=== PATIENT | female | born 1980 | race Caucasian/White ===

== ENCOUNTER → 2021-02-20 | Outpatient (CLI) | payer BC ==
[2021-02-20 09:23] LABS: BASO # 0.1 10^3/uL (0.0-0.2); BASO % 0.6 % (0.0-1.0); EOS # 0.2 10^3/uL (0.0-0.5); EOS % 1.9 % (0.0-3.0); HEMATOCRIT 42.3 % (36.0-47.0); HEMOGLOBIN 14.4 g/dl (12.0-15.5); LYMPH # 2.8 10^3/uL (1.5-5.0); LYMPH % 32.7 % (24.0-44.0); MEAN CORPUSCULAR HEMOGLOBIN 31.1 pg (27.0-33.0); MEAN CORPUSCULAR VOLUME 91.4 fl (80.0-96.0); MONO # 0.7 10^3/uL (0.0-0.8); MONO % 7.9 % (2.0-8.0); NEUTROPHILS # 4.9 10^3/uL (1.5-8.5); NEUTROPHILS % 56.6 % (36.0-66.0); PLATELET COUNT, AUTOMATED 266 10^3/uL (150-450); RED BLOOD COUNT 4.63 10^6/uL (4.00-5.40); WHITE BLOOD COUNT 8.6 10^3/uL (4.0-10.0)
[2021-02-20 09:42] LABS: INR 1.01; PROTHROMBIN TIME 13.7 SECONDS (12.7-14.5)
[2021-02-20 09:43] LABS: ALBUMIN 4.1 GM/DL (3.2-5.2); ALT/SGPT 21 U/L (12-78); BILIRUBIN,TOTAL 0.4 MG/DL (0.2-1.0); BLOOD UREA NITROGEN 11 MG/DL (7-18); CALCIUM LEVEL 9.2 MG/DL (8.5-10.1); CARBON DIOXIDE LEVEL 26 MEQ/L (21-32); CHLORIDE LEVEL 107 MEQ/L (98-107); CHOLESTEROL LEVEL 207 MG/DL (<200); CHOLESTEROL RISK RATIO 3.338 (<5); CREATININE FOR GFR 0.92 MG/DL (0.55-1.30); FREE T4 1.13 NG/DL (0.76-1.46); GLOMERULAR FILTRATION RATE > 60.0 (>58); GLUCOSE, FASTING 97 MG/DL (70-100); HDL CHOLESTEROL 62 MG/DL (>40); LDL CHOLESTEROL 128 MG/DL (<100); NON-HDL-C 145 MG/DL; PARTIAL THROMBOPLASTIN TIME 38.5 SECONDS (25.9-37.0); POTASSIUM SERUM 4.4 MEQ/L (3.5-5.1); RHEUMATOID FACTOR QUANT < 10.0 IU/ML (<15.0); SODIUM LEVEL 139 MEQ/L (136-145); THYROID STIMULATING HORMONE 0.705 uIU/ML (0.358-3.740); TOTAL PROTEIN 7.3 GM/DL (6.4-8.2); TRIGLYCERIDES LEVEL 83 MG/DL (<150)
[2021-02-20 09:53] LABS: ERYTHROCYTE SEDIMENTATION RATE 2 mm/hr (0-20)
[2021-02-22 16:08] LABS: ANA (HEP2) Negative (.)
== END ==
LOC: M LAB 08:27
PROVIDERS: ATTEND Physician Assistant
DX: M19.049 Primary osteoarthritis, unspecified hand (principal); R63.5 Abnormal weight gain; R23.3 Spontaneous ecchymoses; Z13.1 Encounter for screening for diabetes mellitus

== ENCOUNTER → 2021-04-29 | Outpatient (REF) | payer BC | LOC: M SFHCADAM 12:37 | PROVIDERS: ATTEND Physician Assistant | DX: Z12.4 Encounter for screening for malignant neoplasm of cervix (principal) | CPT/HCPCS: 87624; G0123 ==

== ENCOUNTER → 2021-10-24 | Outpatient (CLI) | payer BC ==
[2021-10-24 10:02] LABS: IRON (FE) 82 UG/DL (50-170); MAGNESIUM LEVEL 2.1 MG/DL (1.8-2.4); PHOSPHORUS LEVEL 3.2 MG/DL (2.5-4.9); TOTAL PROTEIN 7.3 GM/DL (6.4-8.2)
[2021-10-24 11:25] LABS: HEMOGLOBIN A1c 4.7 %
[2021-10-25 11:15] LABS: TOTAL 25(OH) VITAMIN D 23.4 NG/ML (30.0-100.0)
[2021-10-25 11:26] LABS: HEPATITIS B SURFACE ANTIGEN NEGATIVE (NEGATIVE)
[2021-10-25 11:50] LABS: HEPATITIS C VIRUS ABY INDEX 0.1 INDEX (<0.8)
[2021-10-25 12:06] LABS: HEPATITIS B SURFACE ANTIBODY POSITIVE (POSITIVE)
[2021-10-25 12:07] LABS: VITAMIN B12 LEVEL 412 PG/ML (247-911)
[2021-10-25 13:59] LABS: COMPLEMENT C3 83 MG/DL (90-180); COMPLEMENT C4 28 MG/DL (10-40); IMMUNOGLOBULIN G 1090 MG/DL (681-1648)
[2021-10-26 14:08] LABS: ALBUMIN % 61.7 % (55.8-66.1); ALPHA-1-GLOBULIN % 4.2 % (2.9-4.9); ALPHA-1-GLOBULINS 0.31 GM/DL (0.17-0.41); ALPHA-2-GLOBULINS 0.65 GM/DL (0.42-0.99); ALPHA-2-GLOBULINS % 8.9 % (7.1-11.8); BETA-1-GLOBULINS 0.42 GM/DL (0.28-0.60); BETA-1-GLOBULINS % 5.8 % (4.7-7.2); BETA-2-GLOBULINS % 4.1 % (3.2-6.5); GAMMA GLOBULIN % 15.3 % (11.1-18.8)
[2021-10-26 14:09] LABS: GAMMA GLOBULINS 1.12 GM/DL (0.65-1.58)
== END ==
LOC: M RAD 08:09
PROVIDERS: ATTEND Internal Medicine
DX: M19.049 Primary osteoarthritis, unspecified hand (principal); R53.83 Other fatigue; M79.10 Myalgia, unspecified site; R21 Rash and other nonspecific skin eruption; Z86.19 Personal history of other infectious and parasitic diseases

== ENCOUNTER → 2021-11-16 | Outpatient (CLI) | payer BC | LOC: M ADAMS 10:39 | PROVIDERS: ATTEND Internal Medicine | DX: M19.049 Primary osteoarthritis, unspecified hand (principal) ==

== ENCOUNTER → 2021-12-08 | Outpatient (CLI) | payer BC | LOC: M SLEEP HO 08:13 | PROVIDERS: ATTEND Internal Medicine | DX: R53.83 Other fatigue (principal) ==

== ENCOUNTER → 2022-02-13 | Outpatient (CLI) | payer BC | LOC: M RAD 08:38 | PROVIDERS: ATTEND Physician Assistant | DX: R06.00 Dyspnea, unspecified (principal) ==

== ENCOUNTER 2022-04-15 12:27 | Day surgery (SDC) | payer BC ==
[2022-04-15] MEDS ORDERED: NS 1,000 ML IV ONE ×2 (12:40→15:35)
[2022-04-15 13:12] LABS: BASO # 0.1 10^3/uL (0.0-0.2); BASO % 0.6 % (0.0-1.0); EOS # 0.1 10^3/uL (0.0-0.5); EOS % 0.6 % (0.0-3.0); HEMATOCRIT 39.9 % (36.0-47.0); HEMOGLOBIN 13.6 g/dl (12.0-15.5); LYMPH # 3.1 10^3/uL (1.5-5.0); MEAN CORPUSCULAR HEMOGLOBIN 31.2 pg (27.0-33.0); MEAN CORPUSCULAR HGB CONC 34.1 g/dl (32.0-36.5); MEAN CORPUSCULAR VOLUME 91.5 fl (80.0-96.0); MONO # 0.7 10^3/uL (0.0-0.8); MONO % 7.9 % (2.0-8.0); NEUTROPHILS # 4.9 10^3/uL (1.5-8.5); NEUTROPHILS % 55.6 % (36.0-66.0); PLATELET COUNT, AUTOMATED 262 10^3/uL (150-450); RED BLOOD COUNT 4.36 10^6/uL (4.00-5.40); WHITE BLOOD COUNT 8.8 10^3/uL (4.0-10.0)
[2022-04-15 13:49] LABS: HCG, SERUM QUANTITATIVE 6012.2 MIU/ML (<4.2)
[2022-04-15] MEDS: MORPHINE 2 MG/ML 1ML VIAL IV PRN ×2 (14:05→15:23)
[2022-04-15 14:58] LABS: RSV AMPLIFICATION NEGATIVE (NEGATIVE)
[2022-04-15] MEDS ORDERED: RHOGAM 300MCG (1500IU) INJ IM ONE (15:05)
[2022-04-15] MEDS ORDERED: MORPHINE 2 MG/ML 1ML VIAL IV PRN (15:35)
[2022-04-15] MEDS ORDERED: PREN1CHW PO (16:04)
[2022-04-15] MEDS ORDERED: HOME MED LIST COMPLETE! XX SCH (16:05)
[2022-04-15 16:26] LABS: THYROID STIMULATING HORMONE 1.111 uIU/ML (0.55-4.78)
[2022-04-15] MEDS ORDERED: KETOROLAC 30 MG/ML 1ML VIAL IV ONE (16:30)
[2022-04-15] MEDS ORDERED: SUGAMMADEX SODIUM 500 MG/5 ML VIAL (BRIDION) As Ordered ONE (16:38)
[2022-04-15] MEDS ORDERED: ONDANSETRON 4MG 2ML VIAL As Ordered ONE (16:38)
[2022-04-15] MEDS ORDERED: SUCCINYLCHOLINE 100MG/5ML SYRINGE As Ordered ONE (16:38)
[2022-04-15] MEDS ORDERED: propofoL 200 MG/20 ML VIAL As Ordered ONE (16:38)
[2022-04-15] MEDS ORDERED: ROCURONIUM BROMIDE 50MG/5ML VIAL As Ordered ONE (16:39)
[2022-04-15] MEDS ORDERED: fentaNYL 100 MCG/2 ML INJECTION As Ordered ONE (16:40)
[2022-04-15] MEDS ORDERED: MIDAZOLAM INJ 2MG/2ML VIAL As Ordered ONE (16:40)
[2022-04-15] MEDS ORDERED: BUPIVACAINE HCL 0.25% 30ML VIAL As Ordered ONE (16:42)
[2022-04-15] MEDS ORDERED: LIDOCAINE 2% 100MG/5ML SDV (FOR ANES.) As Ordered ONE (16:57)
[2022-04-15] MEDS ORDERED: LR 1,000 ML IV SCH (18:35)
[2022-04-15] MEDS ORDERED: oxyCODONE 5MG TAB PO PRN (18:35)
[2022-04-15] MEDS ORDERED: HYDROMORPHONE HCL 0.5 MG/ 0.5 ML SYRINGE IV PRN (18:35)
[2022-04-15] MEDS ORDERED: fentaNYL 100 MCG/2 ML INJECTION IV PRN (18:35)
[2022-04-15] MEDS ORDERED: ONDANSETRON 4MG 2ML VIAL IV PRN (18:35)
[2022-04-15] MEDS ORDERED: MEPERIDINE INJ 25 MG/ML VIAL As Ordered ONE (18:47)
[2022-04-15] MEDS: MEPERIDINE INJ 25 MG/ML VIAL IV PRN ×2 (18:50→19:00)
[2022-04-15] MEDS ORDERED: PERCOCET 5MG/325MG TAB PO PRN (19:00)
[2022-04-15 19:23] LABS: BLOOD UREA NITROGEN 7 MG/DL (9-23); CALCIUM LEVEL 9.1 MG/DL (8.5-10.1); CARBON DIOXIDE LEVEL 25 MMOL/L (20-31); CHLORIDE LEVEL 105 MMOL/L (98-107); CREATININE FOR GFR 0.94 MG/DL (0.55-1.30); GLOMERULAR FILTRATION RATE > 60.0 (>58); GLUCOSE, FASTING 96 MG/DL (60-100); SODIUM LEVEL 138 MMOL/L (136-145)
[2022-04-15 21:06] VITALS: BP 112/63
[2022-04-15] MEDS ORDERED: KETOROLAC 30 MG/ML 1ML VIAL IV SCH (23:00)
== END 2022-04-15 21:06 | disposition home or self-care (01) ==
LOC: M ED 12:27 → M SDC 12:28 → M ED 16:45 → M SDC 21:06
PROVIDERS: ATTEND Obstetrics & Gynecology
DX: O00.102 Left tubal pregnancy without intrauterine pregnancy (principal); Z88.8 Allergy status to other drugs, medicaments and biological substances
CPT/HCPCS: 59151; 76801; 76817; 80048; 84443; 84702; 85025; 86850; 86900; 86901; 87210; 87631; 88305; 93005; 93041; 94760; 96372; 96374; 96375; 96376; 99285; J0330; J1100; J2175; J2405

== ENCOUNTER → 2022-10-07 | Outpatient (CLI) | payer BC ==
[~2022-10-07] MED LIST: PREN1CHW PO
== END ==
LOC: M LAB 17:43
PROVIDERS: ATTEND Internal Medicine
DX: E55.9 Vitamin D deficiency, unspecified (principal)

== ENCOUNTER → 2023-06-18 | Outpatient (CLI) | payer BC ==
[2023-06-18 10:25] LABS: IMMUNOGLOBULIN A 191.2 MG/DL (40-350); IMMUNOGLOBULIN G 1050 MG/DL (650-1600)
[2023-06-28 03:13] LABS: ANTI TETANUS ANTIBODY 0.72 IU/mL (<0.10); IgG SERUM (part of Subclasses) 1161 mg/dL (586-1602); IgG Subclass 1 314 mg/dL (248-810); IgG Subclass 2 592 mg/dL (130-555); IgG Subclass 3 52 mg/dL (15-102); IgG Subclass 4 25 mg/dL (2-96); RUBELLA IgG FOR TORCH EVAL 1.45 index (Immune >0.99); STREP PNEUMO TYPE 12F 0.3 ug/mL (>1.3); STREP PNEUMO TYPE 14 0.3 ug/mL (>1.3); STREP PNEUMO TYPE 18C <0.1 ug/mL (>1.3); STREP PNEUMO TYPE 19A 1.6 ug/mL (>1.3); STREP PNEUMO TYPE 19F 1.2 ug/mL (>1.3); STREP PNEUMO TYPE 23F 0.2 ug/mL (>1.3); STREP PNEUMO TYPE 3 0.4 ug/mL (>1.3); STREP PNEUMO TYPE 4 0.1 ug/mL (>1.3); STREP PNEUMO TYPE 6B 0.2 ug/mL (>1.3); STREP PNEUMO TYPE 7F 0.4 ug/mL (>1.3); STREP PNEUMO TYPE 8 0.4 ug/mL (>1.3); STREP PNEUMO TYPE 9N 1.1 ug/mL (>1.3); STREP PNEUMO TYPE 9V 1.2 ug/mL (>1.3)
== END ==
LOC: M LAB 08:10
PROVIDERS: ATTEND Allergy & Immunology Allergy
DX: D84.9 Immunodeficiency, unspecified (principal)

== ENCOUNTER → 2023-06-18 | Outpatient (CLI) | payer BC ==
[2023-06-18 10:03] LABS: BASO % 0.5 % (0.0-1.0); EOS # 0.1 10^3/uL (0.0-0.5); EOS % 1.6 % (0.0-3.0); HEMATOCRIT 42.2 % (36.0-47.0); HEMOGLOBIN 14.2 g/dl (12.0-15.5); LYMPH # 2.8 10^3/uL (1.5-5.0); LYMPH % 36.5 % (24.0-44.0); MEAN CORPUSCULAR HEMOGLOBIN 30.7 pg (27.0-33.0); MEAN CORPUSCULAR HGB CONC 33.6 g/dl (32.0-36.5); MEAN CORPUSCULAR VOLUME 91.1 fl (80.0-96.0); MONO # 0.7 10^3/uL (0.0-0.8); MONO % 9.1 % (2.0-8.0); PLATELET COUNT, AUTOMATED 185 10^3/uL (150-450); RED BLOOD COUNT 4.63 10^6/uL (4.00-5.40); WHITE BLOOD COUNT 7.6 10^3/uL (4.0-10.0)
[2023-06-18 10:30] LABS: ALBUMIN 3.7 G/DL (3.2-5.2); ALKALINE PHOSPHATASE 46 U/L (46-116); ALT/SGPT 12 U/L (7.0-40); AST/SGOT 19 U/L (<34); BILIRUBIN,TOTAL 0.5 MG/DL (0.3-1.2); BLOOD UREA NITROGEN 15 MG/DL (9-23); CALCIUM LEVEL 8.2 MG/DL (8.5-10.1); CARBON DIOXIDE LEVEL 24 MMOL/L (20-31); CHLORIDE LEVEL 104 MMOL/L (98-107); CHOLESTEROL LEVEL 163 MG/DL (<200); CHOLESTEROL RISK RATIO 3.03 (<5); CREATININE FOR GFR 0.86 MG/DL (0.55-1.30); GLOMERULAR FILTRATION RATE > 60.0 (>58); GLUCOSE, FASTING 90 MG/DL (60-100); HDL CHOLESTEROL 53.7 MG/DL (>40); LDL CHOLESTEROL 95.3 MG/DL (<100); NON-HDL-C 109.3 MG/DL; POTASSIUM SERUM 3.9 MMOL/L (3.5-5.1); SODIUM LEVEL 135 MMOL/L (136-145); TOTAL PROTEIN 6.6 G/DL (5.7-8.2); TRIGLYCERIDES LEVEL 70 MG/DL (<150)
[2023-06-18 10:31] LABS: FREE T4 1.11 NG/DL (0.89-1.76)
[2023-06-18 10:33] LABS: THYROID STIMULATING HORMONE 1.051 uIU/ML (0.55-4.78)
== END ==
LOC: M LAB 08:09
PROVIDERS: ATTEND Physician Assistant
DX: N92.0 Excessive and frequent menstruation with regular cycle (principal); N94.6 Dysmenorrhea, unspecified; Z83.49 Family history of other endocrine, nutritional and metabolic diseases; R63.5 Abnormal weight gain

== ENCOUNTER → 2023-07-04 | Outpatient (CLI) | payer BC | LOC: M WHC 07:55 | PROVIDERS: ATTEND Obstetrics & Gynecology | DX: R92.2 Inconclusive mammogram (principal); R92.343 Mammographic extreme density, bilateral breasts ==

== ENCOUNTER → 2023-07-04 | Outpatient (REF) | payer BC | LOC: M PLALAB 10:01 | PROVIDERS: ATTEND Obstetrics & Gynecology | DX: Z01.419 Encounter for gynecological examination (general) (routine) without abnormal findings (principal) | CPT/HCPCS: 87624; G0123 ==

== ENCOUNTER → 2023-07-10 | Outpatient (CLI) | payer BC ==
[2023-07-10 18:45] LABS: FOLLICLE STIMULATING HORMONE 3.8 mIU/ML; LUTEINIZING HORMONE 13.8 mIU/ML
[2023-07-10 18:46] LABS: ESTRADIOL 184.9 PG/ML; PROLACTIN 14.97 NG/ML
[2023-07-10 18:50] LABS: PROGESTERONE 15.11 NG/ML
== END ==
LOC: M PLALAB 16:08
PROVIDERS: ATTEND Obstetrics & Gynecology
DX: N92.6 Irregular menstruation, unspecified (principal)

== ENCOUNTER → 2023-07-18 | Outpatient (CLI) | payer BC | LOC: M WHC 12:25 | PROVIDERS: ATTEND Obstetrics & Gynecology | DX: R92.8 Other abnormal and inconclusive findings on diagnostic imaging of breast (principal); N60.11 Diffuse cystic mastopathy of right breast; N60.12 Diffuse cystic mastopathy of left breast ==

== ENCOUNTER → 2023-07-18 | Outpatient (CLI) | payer BC | LOC: M WHC 12:22 | PROVIDERS: ATTEND Obstetrics & Gynecology | DX: N92.6 Irregular menstruation, unspecified (principal); N83.202 Unspecified ovarian cyst, left side; R93.89 Abnormal findings on diagnostic imaging of other specified body structures ==